=== PATIENT | female | born 1990 | race Asian ===

== ENCOUNTER 2019-12-09 14:58 | Outpatient (REF) | payer OTHER, SELFPAY ==
[2019-12-10 10:01] LABS: CT PCR NOT DETECTED (Not Detect.)
[2019-12-10 10:02] LABS: NG PCR NOT DETECTED (Not Detect.)
== END 2019-12-09 14:59 | disposition home or self-care (01) ==
LOC: CF 14:58
PROVIDERS: PCP Family Medicine; Referring Provider Family Medicine; Visit Provider Advanced Practice Midwife
DX: Z34.82 Encounter for supervision of other normal pregnancy, second trimester (principal); Z3A.00 Weeks of gestation of pregnancy not specified
CPT/HCPCS: 36415; 87491; 87591; 99212

== ENCOUNTER → 2020-01-11 13:32 | Outpatient (BNVA) | payer OTHER, SELFPAY | PROVIDERS: Visit Provider Obstetrics & Gynecology | DX: Z34.02 Encounter for supervision of normal first pregnancy, second trimester (principal); Z3A.18 18 weeks gestation of pregnancy | CPT/HCPCS: 99212 ==

== ENCOUNTER 2020-01-20 09:55 | Outpatient (REF) | payer OTHER, SELFPAY ==
--- NOTE | 2020-01-20 09:59 | US_ITS ---
EXAMINATION: US OBSTETRICAL CLINICAL INFORMATION: 29-year-old at 19.3 weeks of gestation Suspected anomaly COMPARISON: 12/02/2019 TECHNIQUE: Real-time transabdominal ultrasound was performed using C1-5 megahertz transducer. FINDINGS: A single, active, fetus is seen in breech presentation. The placenta is anterior without previa, and the amniotic fluid volume is wnl. MEASUREMENTS: 1. Biparietal Diameter: 4.7 cm; 20.0 wks 2. Occipital Frontal Diameter: 5.7 cm 3. Head Circumference: 17.2 cm; 19.6 wks 4. Abdominal Circumference: 14.7 cm; 20.0 wks 5. Femur Length: 2.9 cm; 18.6 wks 6. Humerus Length: 3.1 cm; 20.1 wks 7. Tibia Length: 2.6 cm; 19.1 wks 8. Ulna Length: 2.7 cm; 19.6 wks 9. Lateral ventricle: 0.63 cm 10. Cerebellum: 2.0 cm; 20.4 wks 11. Cisterna Magna: 0.37 cm 12. Nuchal Fold: 3.5 mm 13. Heart Rate: 140 beats per minute Rt ovary: normal Lt ovary: normal Cervical length 3.7 cm on T/A. GESTATIONAL AGE: 1. Established GA: 19.3 wks 2. GA from [facility]: 19.6 wks ESTIMATED DATE OF DELIVERY: 1. Established LYNDON: 06/12/2020 2. LYNDON from [facility]: 06/09/2020 ANATOMY: The visualized anatomy includes but not limited to: 1. Cranium: Normal 2. Intracranial anatomy: cavum septum pellucidi, lateral ventricles, choroid plexus, cerebellum, posterior fossa, third and fourth ventricles. 3. face: orbits, lip/palate, profile, nasal bone 4. Heart: four-chamber view of the heart, ventricular septum, foramen ovale, pulmonary vein, left and right outflow tracts, three-vessel view, 3 vessel trachea view, aortic and ductal arches, situs.. 5. Diaphragm: Normal 6. Abdominal wall: Normal 7. Cord Insertion: Normal 8. Spine: Cervical, thoracic, lumbar, sacral. 9. Stomach: Normal size and shape 10. Right Kidney: Normal 11. Left Kidney: Normal 12. 3 vessel cord: Normal 13. Upper extremity: Open hands, fifth digit. 14. Lower extremity: Tibia, fibula, bilateral feet. 15. Bladder: Normal 16. Genitalia: Male, patient aware US/US OB /maternal detail IMPRESSION: 1. Single, living, intrauterine with appropriate biometry. 2. Normal survey DISCUSSION: I reviewed today's ultrasound findings. We discussed the limitations of ultrasound in diagnosing aneuploidy and other congenital abnormalities. I reviewed the differences between screening test and diagnostic test. Amniocentesis was discussed and declined. She was informed that the baseline incidence of congenital abnormalities is approximately 3-5%. Not all these conditions are diagnosable in utero. RECOMMENDATIONS: Thank you for allowing me to participate in her care. Visiting time 25 minutes. Majority of this visit was spent reviewing and discussing her care.
== END 2020-01-20 09:56 | disposition home or self-care (01) ==
LOC: HO.US 09:55
PROVIDERS: Visit Provider Advanced Practice Midwife
DX: O35.9XX0 Maternal care for (suspected) fetal abnormality and damage, unspecified, not applicable or unspecified (principal); Z3A.19 19 weeks gestation of pregnancy
CPT/HCPCS: 76811

== ENCOUNTER → 2020-02-08 09:52 | Outpatient (BNVA) | payer OTHER, SELFPAY | PROVIDERS: Visit Provider Advanced Practice Midwife | DX: Z13.89 Encounter for screening for other disorder (principal) | CPT/HCPCS: 99212 ==

== ENCOUNTER 2020-03-07 11:21 | Outpatient (REF) | payer OTHER, SELFPAY | END 2020-03-07 11:22 | disposition home or self-care (01) | LOC: HO.LAB 11:21 | PROVIDERS: PCP Family Medicine; Visit Provider Advanced Practice Midwife | DX: Z34.01 Encounter for supervision of normal first pregnancy, first trimester (principal) | CPT/HCPCS: 81003; 99212 ==

== ENCOUNTER 2020-03-15 12:48 | Outpatient (REF) | payer OTHER, SELFPAY ==
[2020-03-15 15:08] LABS: Hematocrit 33.8 % (37-47); Hemoglobin 11.3 g/dl (12.0-16.0); Mean Corpuscular HGB Conc 33.4 g/dl (31.0-35.0); Mean Corpuscular Hemoglobin 30.9 pg (27.0-33.0); Mean Corpuscular Volume 92.3 fL (80-98); Mean Platelet Volume 9.3 fL (9.4-12.3); Platelet Count 314 X10*3/uL (160-400); Red Blood Count 3.66 X10*6/uL (4.20-5.50); Red Cell Distribution Width 12.1 % (11.0-16.0); White Blood Count 10.4 X10*3/uL (4.8-10.8)
[2020-03-15 15:32] LABS: Glucose 1 Hour PP 50gm Dose 148 mg/dL (60-140)
[2020-03-16 07:29] LABS: Syphilis Screen Nonreactive (Nonreactive)
[2020-03-16 07:59] LABS: HIV AB/AG Nonreactive (Nonreactive); HIV Num 1 0.14 S/CO (0.00-0.99)
== END 2020-03-15 12:49 | disposition home or self-care (01) ==
LOC: HO.LAB 12:48
PROVIDERS: PCP Family Medicine; Visit Provider Advanced Practice Midwife
DX: Z34.01 Encounter for supervision of normal first pregnancy, first trimester (principal)
CPT/HCPCS: 36415; 85027; 86780; 87389

== ENCOUNTER 2020-03-20 09:05 | Outpatient (REF) | payer OTHER, SELFPAY ==
[2020-03-20 10:00] LABS: Glucose Fasting 77 mg/dL (60-99)
[2020-03-20 11:21] LABS: Glucose 1 Hour 168 mg/dL
[2020-03-20 12:15] LABS: Glucose 2 Hour 126 mg/dL
[2020-03-20 13:11] LABS: Glucose 3 Hour 110 mg/dL
== END 2020-03-20 09:06 | disposition home or self-care (01) ==
LOC: HO.LAB 09:05
PROVIDERS: PCP Family Medicine; Visit Provider Advanced Practice Midwife
DX: Z34.01 Encounter for supervision of normal first pregnancy, first trimester (principal)
CPT/HCPCS: 36415; 82951

== ENCOUNTER → 2020-03-30 10:24 | Outpatient (BNVA) | payer OTHER, SELFPAY | PROVIDERS: PCP Family Medicine; Visit Provider Advanced Practice Midwife | DX: Z34.01 Encounter for supervision of normal first pregnancy, first trimester (principal); Z13.31 Encounter for screening for depression | CPT/HCPCS: 81003; 90471; 90715; 99212 ==

== ENCOUNTER → 2020-04-13 13:37 | Outpatient (BNVA) | payer OTHER, SELFPAY | PROVIDERS: PCP Family Medicine; Visit Provider Advanced Practice Midwife | DX: Z34.01 Encounter for supervision of normal first pregnancy, first trimester (principal) | CPT/HCPCS: 81003; 99212 ==

== ENCOUNTER → 2020-04-26 13:45 | Outpatient (BNVA) | payer OTHER, SELFPAY | PROVIDERS: PCP Family Medicine; Visit Provider Advanced Practice Midwife | DX: O36.5990 Maternal care for other known or suspected poor fetal growth, unspecified trimester, not applicable or unspecified (principal) | CPT/HCPCS: 81003; 99212 ==

== ENCOUNTER → 2020-05-10 14:10 | Outpatient (BNVA) | payer OTHER, SELFPAY | PROVIDERS: Visit Provider Advanced Practice Midwife | DX: Z34.01 Encounter for supervision of normal first pregnancy, first trimester (principal) | CPT/HCPCS: 81003; 99212 ==

== ENCOUNTER 2020-05-11 09:35 | Outpatient (REF) | payer OTHER, SELFPAY ==
--- NOTE | ~2020-05-11 | US_ITS ---
EXAMINATION: OBSTETRICAL ULTRASOUND, Follow up HISTORY: 29-year-old at the 35.3 weeks of gestation Size date discrepancy COMPARISON: 01/20/2020 TECHNIQUE: Real time transabdominal imaging with color and M-mode Doppler. PRESENTATION: Vertex PLACENTA LOCATION: Anterior without previa AMNIOTIC FLUID: SEKOU 13.0 MEASUREMENTS: 1. Biparietal Diameter: 8.94 cm; 36.2 wks 2. Head Circumference: 32.2 cm; 36.3 wks 3. Abdominal Circumference: 32.7 cm; 36.5 wks 4. Femur Length: 6.82 cm; 35.1 wks 5. Heart Rate: 127 beats per minute WEIGHT: EFW: 2857 grams (6 lbs 5 oz) -- 69 %. BIOPHYSICAL PROFILE: Motion: 2 Tone: 2 Breathin Amniotic Fluid: 2 Total score: 8/8 GESTATIONAL AGE: 1. Established GA: 35.3 wks 2. GA from [facility]: 36.1 wks ESTIMATED DATE OF DELIVERY: 1. Established LYNDON: 06/12/2020 2. LYNDON from [facility]: 06/07/2020 US/US OB follow up IMPRESSION: 1. A single active fetus is in vertex presentation 2. Size equals dates, EFW corresponds to 69th percentile 3. Reassuring biophysical profile Thank you very much for this referral.
== END 2020-05-11 09:36 | disposition home or self-care (01) ==
LOC: HO.US 09:35
PROVIDERS: Visit Provider Advanced Practice Midwife
DX: O36.5930 Maternal care for other known or suspected poor fetal growth, third trimester, not applicable or unspecified (principal); Z3A.35 35 weeks gestation of pregnancy
CPT/HCPCS: 76816

== ENCOUNTER 2020-05-16 15:16 | Outpatient (REF) | payer OTHER, SELFPAY ==
[2020-05-17 19:20] LABS: CT PCR NOT DETECTED (Not Detect.); NG PCR NOT DETECTED (Not Detect.)
== END 2020-05-16 15:17 | disposition home or self-care (01) ==
LOC: HO.LAB 15:16
PROVIDERS: Visit Provider Advanced Practice Midwife
DX: Z34.03 Encounter for supervision of normal first pregnancy, third trimester (principal); Z20.2 Contact with and (suspected) exposure to infections with a predominantly sexual mode of transmission
CPT/HCPCS: 81003; 87081; 87147; 87491; 87591; 99212

== ENCOUNTER → 2020-05-24 14:32 | Outpatient (BNVA) | payer OTHER, SELFPAY | PROVIDERS: Visit Provider Advanced Practice Midwife | DX: Z34.03 Encounter for supervision of normal first pregnancy, third trimester (principal); Z3A.37 37 weeks gestation of pregnancy | CPT/HCPCS: 81003; 99212 ==

== ENCOUNTER → 2020-05-30 10:45 | Outpatient (BNVA) | payer OTHER, SELFPAY | PROVIDERS: Visit Provider Advanced Practice Midwife | DX: Z34.01 Encounter for supervision of normal first pregnancy, first trimester (principal); Z3A.38 38 weeks gestation of pregnancy | CPT/HCPCS: 81003; 99212 ==

== ENCOUNTER → 2020-06-07 14:40 | Outpatient (BNVA) | payer OTHER, SELFPAY | PROVIDERS: Visit Provider Advanced Practice Midwife | DX: Z34.01 Encounter for supervision of normal first pregnancy, first trimester (principal); Z3A.39 39 weeks gestation of pregnancy | CPT/HCPCS: 99212 ==

== ENCOUNTER → 2020-06-13 14:25 | Outpatient (BNVA) | payer OTHER, SELFPAY | PROVIDERS: Visit Provider Obstetrics & Gynecology | DX: Z34.01 Encounter for supervision of normal first pregnancy, first trimester (principal); Z3A.40 40 weeks gestation of pregnancy | CPT/HCPCS: 99212 ==

== ENCOUNTER 2020-07-27 14:31 | Outpatient (REF) | payer OTHER, SELFPAY ==
[2020-08-01 02:36] LABS: HPV mRNA E6/E7 rflx Not Detected (Not Detected)
== END 2020-07-27 14:32 | disposition home or self-care (01) ==
LOC: HO.LAB 14:31
PROVIDERS: Visit Provider Obstetrics & Gynecology
DX: Z39.2 Encounter for routine postpartum follow-up (principal); Z11.51 Encounter for screening for human papillomavirus (HPV)
CPT/HCPCS: 87624; 88142; 99212